=== PATIENT | male | born 1970 | race Caucasian/White ===

== ENCOUNTER 2017-07-24 09:54 | Emergency (ER) | payer BC ==
--- NOTE | 2017-07-24 11:28 | EDM.PDOC ---
ED HPI GENERAL MEDICAL PROBLEM - General Chief Complaint: Bite:Animal, Insect Stated Complaint: WOOD TICK Time Seen by Provider: 07/24/17 11:15 - History of Present Illness Onset: Unknown/Unsure Duration: Day(s): Location: Reports: Abdomen Associated Symptoms: Reports: Other ( Pt has a embedded deer tick on the rt side of his lower abdoman. ) - Related Data Allergies Allergy/AdvReac Type Severity Reaction Status Date / Time No Known Allergies Allergy Verified 07/24/17 11:11 Home Meds: Home Meds NK [No Known Home Meds] 07/24/17 [History] Social & Family History - Tobacco Use Smoking Status *Q: Never Smoker Second Hand Smoke Exposure: No - Caffeine Use Caffeine Use: Reports: None - Alcohol Use Days Per Week of Alcohol Use: 1 Number of Drinks Per Day: 2 Total Drinks Per Week: 2 Date of Last Drink: 07/23/17 Time of Last Drink: 21:00 - Recreational Drug Use Recreational Drug Use: No ED ROS GENERAL - Review of Systems Review Of Systems: See Below Constitutional: Reports: No Symptoms HEENT: Reports: No Symptoms Respiratory: Reports: No Symptoms Cardiovascular: Reports: No Symptoms Endocrine: Reports: No Symptoms GI/Abdominal: Reports: No Symptoms : Reports: No Symptoms Skin: Reports: Other ( deer tick embedded in the rt lower abdoman area. ) Neurological: Reports: No Symptoms ED EXAM, ANIMAL BITE - Physical Exam Exam: See Below Text/Narrative:: Pt arrived with a deer tick partially removed from his rt lower abdoman. Exam Limited By: No Limitations General Appearance: Alert, Anxious Ears: Normal TMs Nose: Normal Inspection Throat/Mouth: Normal Inspection Head: Atraumatic Neck: Normal Inspection Respiratory/Chest: No Respiratory Distress Cardiovascular: Regular Rate, Rhythm Course - Vital Signs Last Recorded V/S: Last Vital Signs Temp 36 C 07/24/17 11:15 Pulse 55 L 07/24/17 11:15 Resp 16 07/24/17 11:15 BP 111/80 07/24/17 11:15 Pulse Ox 93 L 07/24/17 11:15 - Re-Assessments/Exams Free Text/Narrative Re-Assessment/Exam: 07/24/17 11:34 the deer tick is still patially present. This was removed with a sliver forceps with out difficulty Departure - Departure Time of Disposition: 11:21 Disposition: Home, Self-Care 01 Condition: Fair Clinical Impression: Tick bite with subsequent removal of tick, Dermacentor andersoni tick bite - Discharge Information Referrals: PCP,None [Primary Care Provider] - Forms: ED Department Discharge Care Plan Goals: moist warm packs, bacatracin to the bite site. doxycyline 100 mg bid for 5 days. -
== END 2017-07-24 11:41 | disposition home or self-care (01) ==
LOC: JP.ED 09:54
DX: S30.861A Insect bite (nonvenomous) of abdominal wall, initial encounter (principal); W57.XXXA Bitten or stung by nonvenomous insect and other nonvenomous arthropods, initial encounter
CPT/HCPCS: 99283